=== PATIENT | female | born 2005 | race Caucasian/White ===

== ENCOUNTER → 2025-02-05 | Outpatient (CLI) | payer OTHER ==
[2025-02-05 14:01] LABS: PLATELET COUNT, AUTOMATED 224 10^3/uL (150-450)
[2025-02-05 14:20] LABS: GLUCOSE CHALLENGE TEST 1 HOUR 127 MG/DL (LESS THAN 140)
[2025-02-05 14:48] LABS: HIV 1&2 SCREEN NEGATIVE (NEGATIVE)
[2025-02-05 14:56] LABS: HEPATITIS C VIRUS ABY INDEX < 0.02 INDEX (<0.8)
[2025-02-05 14:59] LABS: Trichomonas vaginalis (AMP) NOT DETECTED (NEGATIVE)
[2025-02-05 15:23] LABS: GC DNA AMPLIFICATION NEGATIVE (NEGATIVE)
== END ==
LOC: M PLALAB 10:53
PROVIDERS: ATTEND Advanced Practice Midwife
DX: Z34.02 Encounter for supervision of normal first pregnancy, second trimester (principal)

== ENCOUNTER 2025-03-16 21:39 | Outpatient (CLI) | payer OTHER ==
[~2025-03-16] VITALS: Ht 162.6 cm; Wt 72.6 kg
[2025-03-16 21:54] VITALS: BP 124/66
[2025-03-16] MEDS ORDERED: OCUV1CHW PO (21:55)
[2025-03-16] MEDS ORDERED: FERR325T3 PO (21:55)
[2025-03-16] MEDS ORDERED: HOME MED LIST COMPLETE! XX SCH (21:55)
[2025-03-16] MEDS ORDERED: PRENTAB9 PO (21:55)
[2025-03-16 23:31] VITALS: BP 116/65
[2025-03-16] MEDS: BETAMETHASONE SOLUSPAN 6 MG/ML 5 ML VIAL IM ONE (23:53)
[2025-03-17] VITALS (8 sets, daily range): BP systolic 100–125; BP diastolic 51–66
[2025-03-17] MEDS: PRENATAL VITAMINS CHEWABLE TABLET PO SCH (12:43)
[2025-03-17] MEDS: FERROUS SULFATE 325 MG TAB PO SCH (21:20)
[2025-03-17] MEDS: ASCORBIC ACID 250 MG TAB PO SCH (21:20)
[2025-03-17] MEDS: BETAMETHASONE SOLUSPAN 6 MG/ML 5 ML VIAL IM ONE (23:57)
== END 2025-03-18 00:06 | disposition home or self-care (01) ==
LOC: M LDO 21:39
PROVIDERS: ATTEND Specialist
DX: O26.853 Spotting complicating pregnancy, third trimester (principal); O99.013 Anemia complicating pregnancy, third trimester; O99.343 Other mental disorders complicating pregnancy, third trimester; D50.9 Iron deficiency anemia, unspecified; F41.8 Other specified anxiety disorders; Z3A.33 33 weeks gestation of pregnancy
CPT/HCPCS: 59025; 87081; 96372; G0463; J0702

== ENCOUNTER → 2025-04-02 | Outpatient (CLI) | payer OTHER ==
[~2025-04-02] MED LIST: FERR325T3 PO; OCUV1CHW PO; PRENTAB9 PO
== END ==
LOC: M WHC 10:27
PROVIDERS: ATTEND Specialist
DX: Z34.03 Encounter for supervision of normal first pregnancy, third trimester (principal)

== ENCOUNTER 2025-05-02 07:34 | Inpatient (IN) | payer OTHER ==
[~2025-05-02] VITALS: Ht 162.6 cm; Wt 80.5 kg
[2025-05-02] VITALS (36 sets, daily range): BP systolic 92–163; BP diastolic 49–80; TEMP 97.8–101; O2SAT 98–100
[2025-05-02] MEDS ORDERED: OXYTOCIN INJ 10UNITS/ML 1ML VIAL IM PRN (08:45)
[2025-05-02] MEDS ORDERED: CARBOPROST TROMETHAMINE 250 MCG/ML AMP IM PRN (08:45)
[2025-05-02] MEDS ORDERED: OXYTOCIN DRIP 30 UNITS in IV 1 EA IV PRN (08:45)
[2025-05-02] MEDS ORDERED: LIDOCAINE 1% MDV 20 ML VIAL INFIL PRN (08:45)
[2025-05-02] MEDS ORDERED: OXYTOCIN INJ 10UNITS/ML 1ML VIAL IV PRN (08:45)
[2025-05-02] MEDS: LR 1,000 ML IV SCH ×2 (09:28→17:00)
[2025-05-02] MEDS: OXYTOCIN DRIP 30 UNITS in IV 1 EA IV SCH (09:29)
[2025-05-02 10:04] LABS: HIV 1&2 SCREEN NEGATIVE (NEGATIVE)
[2025-05-02 10:12] LABS: HEPATITIS C VIRUS ABY INDEX 0.02 INDEX (<0.8)
[2025-05-02 11:33] LABS: PLATELET COUNT, AUTOMATED 204 10^3/uL (150-450)
[2025-05-02] MEDS ORDERED: NALOXONE INJ 0.4 MG/1 ML VIAL IV PRN (12:05)
[2025-05-02] MEDS ORDERED: diphenhydrAMINE 50 MG/ML VIAL IV PRN (12:05)
[2025-05-02] MEDS ORDERED: LR 500 ML IV PRN (12:05)
[2025-05-02] MEDS ORDERED: EPIDURAL/PCA KEYS XX PRN (12:05)
[2025-05-02] MEDS ORDERED: ONDANSETRON 4MG/2ML VIAL IV PRN (12:05)
[2025-05-02] MEDS: FENTANYL/ROPIVACAINE/NACL BAG 100 ML EPIDURAL SCH (12:10)
[2025-05-02] MEDS: TRANEXAMIC ACID INJection 1,000 MG in NS 100 ML IV PRN (16:01)
[2025-05-02 16:05] LABS: CORD GAS ABE A -9.8; CORD GAS ABE V -4.9; CORD GAS HCO3 A 19.6 MMOL/L; CORD GAS HCO3 V 20.9 MMOL/L; CORD GAS O2 SAT A 50.1 %; CORD GAS O2 SAT V 82.4 %; CORD GAS PCO2 A 56.4 mmHg; CORD GAS PCO2 V 41.2 mmHg; CORD GAS PH A 7.159 UNITS; CORD GAS PH V 7.323 UNITS; CORD GAS PO2 A 28.4 mmHg; CORD GAS PO2 V 41.5 mmHg; CORD GAS SBC A 15.8 MMOL/L; CORD GAS SBC V 20.2 MMOL/L; CORD GAS TCO2 A 21.3 MMOL/L; CORD GAS TCO2 V 22.2 MMOL/L
[2025-05-02] MEDS ORDERED: DOCUSATE SODIUM 100 MG CAPSULE PO PRN (16:25)
[2025-05-02] MEDS ORDERED: CALCIUM CARBONATE 500 MG CHEW U/D PO PRN (16:25)
[2025-05-02] MEDS ORDERED: ANUSOL HC CREAM 30 GM TOP PRN (16:25)
[2025-05-02] MEDS ORDERED: MOM 30 ML SUSPENSION UDC PO PRN (16:25)
[2025-05-02] MEDS ORDERED: METHYLERGONOVINE MALEATE 0.2 MG TAB PO PRN (16:25)
[2025-05-02] MEDS: METHYLERGONOVINE MALEATE 0.2 MG/ML 1 ML VIAL IM PRN (16:26)
[2025-05-02] MEDS: OXYTOCIN DRIP 30 UNITS in IV 1 EA IV PRN (16:26)
[2025-05-02] MEDS: ceFAZolin SODIUM 2 GM in DEXTROSE 5% (D5W) ADV/MINI-BAG 50 ML IV ONE (17:00)
[2025-05-02 20:05] LABS: PLATELET COUNT, AUTOMATED 168 10^3/uL (150-450)
[2025-05-02] MEDS: IBUPROFEN 800 MG TAB PO PRN (20:25)
[2025-05-02] MEDS: ACETAMINOPHEN 500 MG TAB PO PRN (20:26)
[2025-05-02 20:39] LABS: INR 1.1
[2025-05-03 06:02] VITALS: BP 118/56; O2SAT 99
[2025-05-03 08:11] LABS: PLATELET COUNT, AUTOMATED 164 10^3/uL (150-450)
[2025-05-03] MEDS: FERROUS SULFATE 325 MG TAB PO SCH (10:01)
[2025-05-03] MEDS: PRENATAL VITAMINS CHEWABLE TABLET PO SCH (10:03)
[2025-05-03] MEDS: RHOGAM 300MCG (1500IU) INJ IM SCH (10:06)
[2025-05-03 18:00] VITALS: BP 112/62; O2SAT 99
[2025-05-03] MEDS: DIBUCAINE 1% OINTMENT 30 GM TOP PRN (19:23)
[2025-05-04 06:00] VITALS: BP 124/87; O2SAT 99
[2025-05-04] MEDS: MEASLES,MUMPS,RUBELLA VACCINE INJ (MMR-II) SC.IMMUN ONE (08:06)
[2025-05-04] MEDS ORDERED: IBUP600T42 PO (09:09)
[2025-05-04] MEDS ORDERED: ACET-907 PO (09:09)
[2025-05-04] MEDS: FLUZONE VACCINE TRI PF(25-26) 0.5ML SYRINGE IM.IMMUN ONE (12:24)
== END 2025-05-04 13:00 | disposition home or self-care (01) | DRG 806 ==
LOC: M LDI 07:34 → M OBS 21:11
PROVIDERS: ADMIT Obstetrics & Gynecology; ATTEND Obstetrics & Gynecology
PROC: 10E0XZZ Delivery of Products of Conception, External Approach (ICD-10-PCS; principal; 2025-05-02)
PROC: 0HQ9XZZ Repair Perineum Skin, External Approach (ICD-10-PCS; 2025-05-02)
PROC: 30233N1 Transfusion of Nonautologous Red Blood Cells into Peripheral Vein, Percutaneous Approach (ICD-10-PCS; 2025-05-02)
PROC: 3E033VJ Introduction of Other Hormone into Peripheral Vein, Percutaneous Approach (ICD-10-PCS; 2025-05-02)
PROC: 3E0P7GC Introduction of Other Therapeutic Substance into Female Reproductive, Via Natural or Artificial Opening (ICD-10-PCS; 2025-05-02)
DX: O70.0 First degree perineal laceration during delivery (principal); Z37.0 Single live birth; O72.1 Other immediate postpartum hemorrhage; Z3A.40 40 weeks gestation of pregnancy; Z88.0 Allergy status to penicillin; Z88.8 Allergy status to other drugs, medicaments and biological substances